=== PATIENT | male | born 1995 | race Caucasian/White ===

== ENCOUNTER 2023-07-14 18:15 | Emergency (ER) | payer OTHER, SELFPAY | END 2023-07-14 19:08 | disposition home or self-care (01) | LOC: BURERS 18:15 | DX: S83.411A Sprain of medial collateral ligament of right knee, initial encounter (principal); F17.220 Nicotine dependence, chewing tobacco, uncomplicated; X50.1XXA Overexertion from prolonged static or awkward postures, initial encounter; Y93.89 Activity, other specified; Y92.69 Other specified industrial and construction area as the place of occurrence of the external cause | CPT/HCPCS: 99283 ==